=== PATIENT | female | born 1990 | race American Indian/Alaskan Native ===

== ENCOUNTER 2018-08-09 17:13 | Inpatient (IN) | payer MEDICARE ==
[2018-08-09 17:31] VITALS: O2SAT 98
[2018-08-09] MEDS ORDERED: DiphenhydrAMINE 50 mg/ml Inj IM PRN (18:32)
[2018-08-09] MEDS ORDERED: Magnesium Hydroxide Susp 30 ml UD PO PRN (18:32)
[2018-08-09] MEDS ORDERED: Alum-Mag Hydrox-Simethicone Susp (30 mL) PO PRN (18:32)
--- NOTE | 2018-08-09 18:34 | CP.PCM.CON ---
History of Present Illness - History of Present Illness History of Present Illness: 27 y/o female with PMH bipolar depression since childhood transferred to out inpatient psychiatric unit from [facility] for treatment . Medicine consulted . History obtained from patient . She states that has been off psychiatric meds for almost 2 years due to side effect profile. Recently she was in custody and was released just 2 days ago , when she returned home and decided to start wellbutryn and Abilify . She decided to call the police because she was feeling very anxious with racing thoughts , feeling depressed and suicidal , asking for help. Physically patient feeling well, denies any CP, SOB, palpittaions, PND, orthopnea, urinary sx , changes in bowel movements, weight loss or gain, fever, chills, nausea or vomiting. Allergies ; NKDA PMH Bipolar depression since childhood Medications;Abilify, Wellbutryn Surgery ; None Family history ; mother has paranoia Social history ; single, lives with mother and 2 brothers , smokes 3 cigg /day, has history of ETOH abuse , multidrug abuse , marijuana, Maribel, Crack, PCP does not work PMD ; None code sttaus : Full Surrogate decision maker : Mother ( number in chart) Review of Systems - Review of Systems All systems: reviewed and no additional remarkable complaints except Past Patient History - Infectious Disease Hx of Infectious Diseases: None - Past Social History Smoking Status: Light Smoker < 10 Cigarettes Daily Chewing Tobacco Use: No Cigar Use: No Alcohol: < 2 Drinks/Day Drugs: Cannabis, Cocaine, Inhalants Home Situation {Lives}: With Family Meds Allergies/Adverse Reactions: Allergies Allergy/AdvReac Type Severity Reaction Status Date / Time No Known Allergies Allergy Verified 08/09/18 17:14 Physical Exam - Constitutional Appears: Non-toxic, No Acute Distress - Head Exam Head Exam: ATRAUMATIC, NORMAL INSPECTION, NORMOCEPHALIC - Eye Exam Eye Exam: EOMI, Normal appearance, PERRL Pupil Exam: NORMAL ACCOMODATION - ENT Exam ENT Exam: Mucous Membranes Moist, Normal Exam - Neck Exam Neck exam: Positive for: Full Rom, Normal Inspection - Respiratory Exam Respiratory Exam: Clear to Auscultation Bilateral, NORMAL BREATHING PATTERN. absent: Rales, Rhonchi, Wheezes - Cardiovascular Exam Cardiovascular Exam: REGULAR RHYTHM, RRR, +S1, +S2. absent: JVD - GI/Abdominal Exam GI & Abdominal Exam: Normal Bowel Sounds, Soft. absent: Distended, Guarding, Rebound, Tenderness - Rectal Exam Rectal Exam: Deferred - Extremities Exam Extremities exam: Positive for: normal capillary refill, normal inspection, pedal pulses present. Negative for: calf tenderness, pedal edema - Back Exam Back exam: NORMAL INSPECTION - Neurological Exam Neurological exam: Alert, CN II-XII Intact, Oriented x3, Reflexes Normal - Psychiatric Exam Psychiatric exam: Normal Affect, Normal Mood - Skin Skin Exam: Dry, Intact, Normal Color, Warm Results - Vital Signs Recent Vital Signs: Last Vital Signs Temp 99.0 F 08/09/18 17:14 Pulse 96 H 08/09/18 17:14 Resp 16 08/09/18 17:14 BP 136/77 08/09/18 17:14 Pulse Ox 98 08/09/18 17:14 Assessment & Plan - Assessment and Plan (Free Text) Assessment: 27 y/o female with PMH bipolar depression since childhood transferred to out inpatient psychiatric unit from [facility] for treatment . Medicine consulted . History obtained from patient . She states that has been off psychiatric meds for almost 2 years due to side effect profile. Recently she was in custody and was released just 2 days ago , when she returned home and decided to start wellbutryn and Abilify . She decided to call the police because she was feeling very anxious with racing thoughts , feeling depressed and suicidal , asking for help. Physically patient feeling well, denies any CP, SOB, palpittaions, PND, orthopnea, urinary sx , changes in bowel movements, weight loss or gain, fever, chills, nausea or vomiting. 1. Bipolar depression check CBC, TSH, BMP , RPR Continue management as per psych Monitor BP for now
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
[2018-08-10 06:37] LABS: T4 10.5 ug/dl (5.5-11.0)
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
[2018-08-10] MEDS: Divalproex 250 mg DR(BID formulation) PO SCH (16:46)
[2018-08-10] MEDS ORDERED: Divalproex 500 mg DR(BID formulation) PO SCH (22:00)
[2018-08-11 06:51] LABS: HDL CHOLESTEROL 32 MG/DL (30-70)
[2018-08-11 07:03] LABS: LDL CHOLESTEROL 46 mg/dL (0-129)
[2018-08-11] MEDS: Divalproex 250 mg DR(BID formulation) PO SCH (09:33)
[2018-08-11] MEDS ORDERED: Risperidone M TAB 2 MG PO ONE (13:30)
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
[2018-08-11] MEDS ORDERED: DiphenhydrAMINE 50 mg/ml Inj IM PRN (15:40)
[2018-08-11] MEDS ORDERED: Divalproex 500 mg ER (ONCE DAILY formulation) PO SCH (22:00)
[2018-08-12] MEDS: Divalproex 500 mg ER (ONCE DAILY formulation) PO SCH ×2 (00:59→21:01)
[2018-08-12] MEDS ORDERED: Risperidone M TAB 2 MG PO SCH (09:00)
--- NOTE | 2018-08-12 15:34 | PCM.PYCHPN ---
Psychiatric Progress Note - Psychiatric Progress Note Patient seen today, length of contact: pt evaluated discussed with team chart reviewed Patient Chief Complaint: I know I am but the baby is on the side Problems Identified/Issues Discussed: pt evaluated, floridly psychotic, delusional thought process, pt believes she is , she reports having non command auditory hallucinations, commenting on her daily actions, reported they are the voices of people she numbered and knows through the internet, pt observed dysphoric internally preoccupied talking to self and responding to internal stimuli, affect extremely labile shifting between laughing inappropriately and having crying spells pt denied command hallucinations, denied any current suicidal or homicidal ideation DSM 5 Symptoms Update: post traumatic stress disorder bipolar disorder mixed with psychotic features polysubstance use Medication Change: Yes (increase haldol) Medical Record Reviewed: Yes Mental Status Examination - Cognitive Function Orientation: Person, Place, Situation, Time Attention: Poor Concentration: Poor Association: Loose Fund of Knowledge: Poor Decription of patient's judgement and insights: poor insight and judgment - Mood Mood: Depressed, Anxious - Affect Affect: Constricted - Speech Speech: Pressured - Formal Thought Process Formal Thought Process: Delusions, Loosening of associations, Circumstantial Psychotic Thoughts and Behaviors: pt delusional , with disorganized thought process - Suicidal Ideation Suicidal Ideation: No - Homicidal Ideation Homicidal Ideation: No Goal/Treatment Plan - Goal/Treatment Plan Need for Continued Stay: Severe depression anxiety, Discharge may exacerbated symptoms Progress Toward Problem(s) and Goals/Treatment Plan: haldol 5mg bid and 10mg qhs cogentin 1mg bid and 1mg qhs depakote 1000mg qhs motivational, group and supportive therapy Estimated Date of D/C: 08/18/18
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
[2018-08-13] MEDS: Divalproex 500 mg ER (ONCE DAILY formulation) PO SCH (21:12)
--- NOTE | 2018-08-14 13:14 | PCM.PYCHPN ---
Psychiatric Progress Note - Psychiatric Progress Note Patient seen today, length of contact: pt evaluated discussed with team chart reviewed Patient Chief Complaint: I am having good time Problems Identified/Issues Discussed: pt evaluated continues to have disorganized thought process with loose association, delusions of persecution, experiencing non command auditory hallucinations, pt also presenting with pressured speech, not goal directed, labile affect, episodes of crying spells alternating with inappropriate laughter , sexually preoccupied, needs frequent redirection, limited insight into illness denied command hallucinations, denied any current suicidal or homicidal ideation DSM 5 Symptoms Update: schizoaffective disorder bipolar type post traumatic disorder cannabis abuse stimulant abuse Medication Change: No Medical Record Reviewed: Yes Mental Status Examination - Cognitive Function Orientation: Person, Place, Situation, Time Attention: Poor Concentration: Poor Association: Loose Fund of Knowledge: Poor Decription of patient's judgement and insights: poor insight and judgment - Mood Mood: Depressed, Anxious - Affect Affect: Constricted - Speech Speech: Pressured - Formal Thought Process Formal Thought Process: Delusions, Loosening of associations, Circumstantial Psychotic Thoughts and Behaviors: pt delusional , with disorganized thought process - Suicidal Ideation Suicidal Ideation: No - Homicidal Ideation Homicidal Ideation: No Goal/Treatment Plan - Goal/Treatment Plan Need for Continued Stay: Severe depression anxiety, Discharge may exacerbated symptoms Progress Toward Problem(s) and Goals/Treatment Plan: haldol 5mg bid and 10mg qhs cogentin 1mg bid and 1mg qhs depakote 1500mg qhs , follow up on depakote level motivational, group and supportive therapy Estimated Date of D/C: 08/18/18
[2018-08-14] MEDS: Divalproex 500 mg ER (ONCE DAILY formulation) PO SCH (22:54)
--- NOTE | 2018-08-15 12:27 | ED PDOC ---
Psych Transfer Clearance - Clearance Statement Clearance Statement: Reviewed vital signs, lab results and transfer papers. Patient clinically stable for psychiatric admission.
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
[2018-08-15] MEDS: Divalproex 500 mg ER (ONCE DAILY formulation) PO SCH (21:12)
--- NOTE | 2018-08-16 10:06 | PCM.PYCHPN ---
Psychiatric Progress Note - Psychiatric Progress Note Patient seen today, length of contact: Pt evaluated, case discussed w/ team, chart reviewed Patient Chief Complaint: "I can read your mind." Problems Identified/Issues Discussed: Patient continues to be psychotic, disorganized w/ bizarre affect. +AH + Beliefs that she can read minds. She told the resume writer, "You were just thinking red and blue." She denies adverse effects to medications. Diagnostic Results: VPA 68.2 on 08/15/18 Medication Change: No Medical Record Reviewed: Yes Consults ordered or reviewed: Medicine consult Mental Status Examination - Cognitive Function Orientation: Person, Place, Situation, Time Attention: Poor Concentration: Poor Association: Loose Fund of Knowledge: Poor Decription of patient's judgement and insights: Poor I/J - Mood Mood: Depressed, Anxious - Affect Affect: Constricted - Speech Speech: Pressured - Formal Thought Process Formal Thought Process: Hallucinations, Delusions, Loosening of associations, Circumstantial Psychotic Thoughts and Behaviors: +AH; +Delusions of mind reading - Suicidal Ideation Suicidal Ideation: No - Homicidal Ideation Homicidal Ideation: No Goal/Treatment Plan - Goal/Treatment Plan Need for Continued Stay: Remain at risks for inpatient hospitalization, Severe depression anxiety, Discharge may exacerbated symptoms, Severe functional impairment Progress Toward Problem(s) and Goals/Treatment Plan: Schizoaffective Disorder; Stimulant and Cannabis Use Disorders -Continue Depakote, VPA 68.2 on 08/15/18 -Continue Haldol, Cogentin and Trazodone; no adverse effects to medications reported -Individual and group therapy -Psychoeducation -Medicine consult -Disposition planning Estimated Date of D/C: 08/22/18
[2018-08-16] MEDS: Divalproex 500 mg ER (ONCE DAILY formulation) PO SCH (21:28)
--- NOTE | 2018-08-17 08:29 | PCM.PYCHPN ---
Psychiatric Progress Note - Psychiatric Progress Note Patient seen today, length of contact: Pt evaluated, case discussed w/ team, chart reviewed Patient Chief Complaint: "I can read your mind." Problems Identified/Issues Discussed: Patient continues to be psychotic, disorganized w/ bizarre affect and psychomotor retardation. +AH and +Beliefs that she can read minds. She denies adverse effects to medications. Diagnostic Results: VPA 68.2 on 08/15/18 Medication Change: No Medical Record Reviewed: Yes Consults ordered or reviewed: Medicine consult Mental Status Examination - Cognitive Function Orientation: Person, Place, Situation, Time Attention: Poor Concentration: Poor Association: Loose Fund of Knowledge: Poor Decription of patient's judgement and insights: Poor I/J - Mood Mood: Depressed, Anxious - Affect Affect: Constricted - Speech Speech: Pressured - Formal Thought Process Formal Thought Process: Hallucinations, Delusions, Loosening of associations, Circumstantial Psychotic Thoughts and Behaviors: +AH; +Delusions of mind reading - Suicidal Ideation Suicidal Ideation: No - Homicidal Ideation Homicidal Ideation: No Goal/Treatment Plan - Goal/Treatment Plan Need for Continued Stay: Remain at risks for inpatient hospitalization, Severe depression anxiety, Discharge may exacerbated symptoms, Severe functional impairment Progress Toward Problem(s) and Goals/Treatment Plan: Schizoaffective Disorder; Stimulant and Cannabis Use Disorders -Continue Depakote, VPA 68.2 on 08/15/18 -Continue Haldol, Cogentin and Trazodone; no adverse effects to medications reported -Individual and group therapy -Psychoeducation -Medicine consult -Disposition planning Estimated Date of D/C: 08/22/18
[2018-08-17] MEDS: Divalproex 500 mg ER (ONCE DAILY formulation) PO SCH (21:13)
--- NOTE | 2018-08-18 14:50 | PCM.PYCHPN ---
Psychiatric Progress Note - Psychiatric Progress Note Patient seen today, length of contact: Pt evaluated, case discussed w/ team, chart reviewed Patient Chief Complaint: I am ready to start school Problems Identified/Issues Discussed: pt evaluated ,less labile and less irritable, pt however continues to present with disorganized thought process, with tangential speech and loose association, limited insight into illness, continues to be sexually preoccupied and unable to attend to her personal hygiene discussed with pt the referral to [facility] and starting partial program on discharge , also discussed starting haldol decanoate to ensure compliance denied command hallucinations denied any current thoughts of self harm DSM 5 Symptoms Update: schizoaffective disorder bipolar type polysubstance use disorder Medication Change: No Medical Record Reviewed: Yes Mental Status Examination - Cognitive Function Orientation: Person, Place, Situation, Time Memory: Confabulations Attention: WNL Concentration: Poor Association: Loose Fund of Knowledge: WNL Decription of patient's judgement and insights: partial insight , poor judgment - Mood Mood: Depressed, Anxious - Affect Affect: Constricted - Speech Speech: Pressured - Formal Thought Process Formal Thought Process: Hallucinations, Delusions, Loosening of associations, Circumstantial Psychotic Thoughts and Behaviors: pt continues to have tangential thought process, - Suicidal Ideation Suicidal Ideation: No - Homicidal Ideation Homicidal Ideation: No Goal/Treatment Plan - Goal/Treatment Plan Need for Continued Stay: Remain at risks for inpatient hospitalization, Severe depression anxiety, Discharge may exacerbated symptoms, Severe functional impairment Progress Toward Problem(s) and Goals/Treatment Plan: haldol 5mg bid and 15mg qhs, will start haldol decanoate cogentin 1mg bid and 1mg qhs depakote 1500mg qhs , depakote level 64, motivational, group and supportive therapy Estimated Date of D/C: 08/22/18
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
[2018-08-18] MEDS: Divalproex 500 mg ER (ONCE DAILY formulation) PO SCH (21:18)
[2018-08-18] MEDS: Miconazole 2% Vaginal 7 CREAM VAG SCH (21:35)
--- NOTE | 2018-08-19 13:42 | PCM.PYCHPN ---
Psychiatric Progress Note - Psychiatric Progress Note Patient seen today, length of contact: Pt evaluated, case discussed w/ team, chart reviewed Patient Chief Complaint: I think I am sick Problems Identified/Issues Discussed: pt evaluated ,seen on the unit interacting with other patients, her affect is less labile reported mood is better, speech is less disorganized and less pressured, continues to have delusional thought process, reporting she can read others thoughts and indicating that others can read her mind, pt also has somatic preoccupation with multiple somatic complaints , discussed with pt starting haldol decanoate to ensure compliance, after follow up on EKG pt reported clearing off of the auditory hallucinations denied command hallucinations denied any current thoughts of self harm DSM 5 Symptoms Update: schizoaffective disorder bipolar polysubstance use disorder PTSD Medication Change: No Medical Record Reviewed: Yes Mental Status Examination - Cognitive Function Orientation: Person, Place, Situation, Time Memory: Confabulations Attention: WNL Concentration: Poor Association: Loose Fund of Knowledge: WNL Decription of patient's judgement and insights: partial insight , poor judgment - Mood Mood: Depressed, Anxious - Affect Affect: Constricted - Speech Speech: Pressured - Formal Thought Process Formal Thought Process: Hallucinations, Delusions, Loosening of associations, Circumstantial Psychotic Thoughts and Behaviors: pt continues to have tangential thought process, - Suicidal Ideation Suicidal Ideation: No - Homicidal Ideation Homicidal Ideation: No Goal/Treatment Plan - Goal/Treatment Plan Need for Continued Stay: Remain at risks for inpatient hospitalization, Severe depression anxiety, Discharge may exacerbated symptoms, Severe functional impairment Progress Toward Problem(s) and Goals/Treatment Plan: haldol 5mg bid and 15mg qhs, will start haldol decanoate after EKG follow up cogentin 1mg bid and 1mg qhs depakote 1500mg qhs , depakote level 64, motivational, group and supportive therapy Estimated Date of D/C: 08/22/18
[2018-08-19] MEDS: Divalproex 500 mg ER (ONCE DAILY formulation) PO SCH (21:25)
--- NOTE | 2018-08-20 10:34 | CARD ---
APPROVED REPORT Date of service: 08/19/2018 <Conclusion> Normal sinus rhythm Normal ECG
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
[2018-08-20] MEDS: Divalproex 500 mg ER (ONCE DAILY formulation) PO SCH (21:36)
[2018-08-21] MEDS: Divalproex 500 mg ER (ONCE DAILY formulation) PO SCH (21:07)
[2018-08-21] MEDS: Miconazole 2% Vaginal 7 CREAM VAG SCH (21:08)
--- NOTE | 2018-08-22 17:38 | PCM.PYCHPN ---
Psychiatric Progress Note - Psychiatric Progress Note Patient seen today, length of contact: Pt evaluated, case discussed w/ team, chart reviewed Patient Chief Complaint: pt seen sitting on edge of bed, reports feeling sedated at times., staff report pt reports has falling on knees was seen by hospitalist per team. pt received trazodone last evening. pt is having haldol dose decreased today related to possible side effects. Problems Identified/Issues Discussed: alteration in cognition alteration in coping unwitnessed fall Medical Problems: pt seen by hospitalist Diagnostic Results: per psychiatry per medicine per nursing per social work per recreational therapy DSM 5 Symptoms Update: some improvement psychosis Medication Change: Yes (decrease today's haldol dose to 1mg am, 5p and hs) Medical Record Reviewed: Yes Consults ordered or reviewed: pt seen by hospitalist Mental Status Examination - Cognitive Function Orientation: Person, Place, Situation, Time Memory: Confabulations Attention: WNL Concentration: Poor Association: Loose Fund of Knowledge: WNL Decription of patient's judgement and insights: impaired - Mood Mood: Depressed - Affect Affect: Constricted - Speech Speech: Pressured - Formal Thought Process Formal Thought Process: Hallucinations, Delusions, Circumstantial - Suicidal Ideation Suicidal Ideation: No - Homicidal Ideation Homicidal Ideation: No Goal/Treatment Plan - Goal/Treatment Plan Need for Continued Stay: Remain at risks for inpatient hospitalization, Severe depression anxiety, Discharge may exacerbated symptoms, Severe functional impairment Progress Toward Problem(s) and Goals/Treatment Plan: inpt milieu decrease today's haldol to 1mg po am, 1mg po 5pm and 1mg po hs place pt one to one for safety team can reassess status am discharge planning in progress vital signs and clinical observation per protocol and per status pt seen by hospitalit Estimated Date of D/C: 08/29/18 - Smoking Cessation Smoking Cessation Initiated: No Reason for not providing: defers
[2018-08-22] MEDS: Divalproex 500 mg ER (ONCE DAILY formulation) PO SCH (21:17)
[2018-08-22] MEDS: Miconazole 2% Vaginal 7 CREAM VAG SCH (21:18)
--- NOTE | 2018-08-23 09:50 | PCM.PYCHPN ---
Psychiatric Progress Note - Psychiatric Progress Note Patient seen today, length of contact: Pt evaluated, case discussed w/ team, chart reviewed Patient Chief Complaint: pt has remained internally preoccupied and still withdrawn and hallucinating and started on haldol dec recentky. Medication Change: Yes (decrease today's haldol dose to 1mg am, 5p and hs) Medical Record Reviewed: Yes Mental Status Examination - Cognitive Function Orientation: Person, Place, Situation, Time Memory: Confabulations Attention: WNL Concentration: Poor Association: Loose Fund of Knowledge: WNL - Mood Mood: Depressed - Affect Affect: Constricted - Speech Speech: Pressured - Formal Thought Process Formal Thought Process: Hallucinations, Delusions, Circumstantial - Suicidal Ideation Suicidal Ideation: No - Homicidal Ideation Homicidal Ideation: No Goal/Treatment Plan - Goal/Treatment Plan Need for Continued Stay: Remain at risks for inpatient hospitalization, Severe depression anxiety, Discharge may exacerbated symptoms, Severe functional impairment Progress Toward Problem(s) and Goals/Treatment Plan: continue the curent meds and 1:1 observation for safety. Estimated Date of D/C: 08/29/18
[2018-08-23] MEDS: Divalproex 500 mg ER (ONCE DAILY formulation) PO SCH (21:19)
[2018-08-23] MEDS: Miconazole 2% Vaginal 7 CREAM VAG SCH (21:25)
[2018-08-24] MEDS: Miconazole 2% Vaginal 7 CREAM VAG SCH ×2 (21:24→21:25)
[2018-08-24] MEDS: Divalproex 500 mg ER (ONCE DAILY formulation) PO SCH (21:24)
[2018-08-25 13:15] LABS: BASO # 0.1 K/uL (0.0-0.2); BASO % 1.3 % (0.0-2.0); EOS # 0.3 K/uL (0.0-0.7); EOS % 4.7 % (0.0-4.0); HEMOGLOBIN 12.1 g/dL (12.0-16.0); LYMPH # 2.4 K/uL (1.0-4.3); MEAN CELL VOLUME 81.9 fl (81.0-99.0); MEAN CORPUSCULAR HEMOGLOBIN 27.1 pg (27.0-31.0); MEAN CORPUSCULAR HGB CONC 33.1 g/dL (33.0-37.0); MEAN PLATELET VOLUME 8.2 fl (7.2-11.7); MONO # 0.7 K/uL (0.0-0.8); MONO % 8.9 % (0.0-10.0); NEUT # 3.8 K/uL (1.8-7.0); NEUT % 52.1 % (50.0-75.0); NRBC % 0.1 % (0.0-0.0); RBC 4.45 Mil/uL (3.80-5.20); RED CELL DISTRIBUTION WIDTH 14.6 % (11.5-14.5); WHITE BLOOD COUNT 7.3 K/uL (4.8-10.8)
--- NOTE | 2018-08-25 13:38 | CP.PCM.PN ---
Subjective - Date & Time of Evaluation Date of Evaluation: 08/25/18 Time of Evaluation: 13:00 - Subjective Subjective: Patient seen as follow up because of lethargy and elevated CPK at 616. Reported to have been receiving a total of 25mg of Haldol a day now cut down to 5mg PO BID. Objective - Vital Signs/Intake and Output Vital Signs (last 24 hours): Temp Pulse Resp BP Pulse Ox 97.3 F L 70 18 105/62 98 08/25/18 09:00 08/25/18 09:00 08/25/18 09:00 08/25/18 09:00 08/09/18 17:14 - Medications Medications: Current Medications Benztropine Mesylate (Cogentin) 1 mg PO [facility] Last Admin: 08/24/18 21:23 Dose: 1 mg Diphenhydramine HCl (Benadryl) 50 mg IM Q4 PRN PRN Reason: Extrapyramidal S/S Unable PO Last Admin: 08/24/18 18:47 Dose: 50 mg Diphenhydramine HCl (Benadryl) 50 mg PO Q4 PRN PRN Reason: Extrapyramidal Symptoms Divalproex Sodium (Depakote Er(Once Daily)) 1,500 mg PO [facility] Last Admin: 08/24/18 21:24 Dose: 1,500 mg Haloperidol (Haldol) 5 mg PO BID [facility] Last Admin: 08/22/18 09:54 Dose: 5 mg Haloperidol (Haldol) 15 mg PO [facility] Last Admin: 08/24/18 21:24 Dose: 15 mg Hydroxyzine Pamoate (Vistaril) 50 mg PO Q8 PRN PRN Reason: Anxiety Last Admin: 08/17/18 13:34 Dose: 50 mg Trazodone HCl (Desyrel) 100 mg PO [facility] Last Admin: 08/21/18 21:08 Dose: 100 mg Trazodone HCl (Desyrel) 100 mg PO [facility] Last Admin: 08/24/18 21:24 Dose: 100 mg - Labs Labs: 08/25/18 13:12 - Constitutional Appears: Other (lethargic but responsive to verbal inquiry) - Head Exam Head Exam: ATRAUMATIC - ENT Exam ENT Exam: Mucous Membranes Moist - Respiratory Exam Respiratory Exam: absent: Rales, Rhonchi, Wheezes, Respiratory Distress - Cardiovascular Exam Cardiovascular Exam: REGULAR RHYTHM, +S1, +S2 - Psychiatric Exam Psychiatric exam: Flat Affect - Skin Skin Exam: Dry, Intact Assessment and Plan (1) Rhabdomyolysis Status: Acute - Assessment and Plan (Free Text) Plan: IV hydration with NSS 250cc/hr urinalysis repeat CPK, BMP in am hold Haldol
--- NOTE | 2018-08-25 14:29 | PCM.PYCHPN ---
Psychiatric Progress Note - Psychiatric Progress Note Patient seen today, length of contact: Pt evaluated, case discussed w/ team, chart reviewed Patient Chief Complaint: I am tired Problems Identified/Issues Discussed: pt evaluated , presenting with altered mental status , on reviewing the chart pt since 08/22 noted to be drowsy ,sedated, with underproductive speech and minimal eye contact, reporting weakness of her body and her knees giving up , resulting in multiple falls, internal medicine was consulted and haldol was held, pt continued to present with increased drossiness and altered mental status, almost mute , episodes of unsteadiness of gait resulting in falls, poor eye contact closing her eyes, on examination,no stiffness of extremities no shuffling gait noted, no reported changes in vital signs temp/ 97.2, bp105/65 pt appears to be catatonic with waxy flexibility , cpk ordered stat noted to be 616 , CBC with diff ordered WBC noted to be 7.2 will consult with neurology and internal medicine to rule out neuroleptic malignant syndrome, possible need for IV fluids pt continues to report non command auditory hallucinations, presenting with disorganized thought process and possible catatonia DSM 5 Symptoms Update: schizoaffective disorder 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 Medication Change: Yes (HOLD HALDOL ) Medical Record Reviewed: Yes Mental Status Examination - Cognitive Function Orientation: Person, Place, Situation, Time Memory: Confabulations Attention: Poor Concentration: Poor Association: Loose Fund of Knowledge: Poor Decription of patient's judgement and insights: POOR INSIGHT AND JUDGMENT - Mood Mood: Depressed - Affect Affect: Constricted - Speech Additional comments: underproductive pt almost mute - Formal Thought Process Formal Thought Process: Hallucinations, Delusions - Suicidal Ideation Suicidal Ideation: No - Homicidal Ideation Homicidal Ideation: No Goal/Treatment Plan - Goal/Treatment Plan Need for Continued Stay: Remain at risks for inpatient hospitalization, Severe depression anxiety, Discharge may exacerbated symptoms, Severe functional impairment Progress Toward Problem(s) and Goals/Treatment Plan: pt presenting with altered mental status and cartatonia stat CPK ordered 616 CBC with diff ordered within normal, ordered comprehensive metabolic panel for tomorrow AM neurology and internal medicine consults requested for possible need for IV fluids will also hold depakote . ativan as needed for catatonic features Estimated Date of D/C: 09/05/18
[2018-08-25] MEDS: Sodium Chloride 0.9% 1,000 ML IV SCH ×2 (16:50→18:55)
[2018-08-25 17:09] LABS: SQUAMOUS EPITHIAL 7 /hpf (0-5); URINE BACTERIA RARE (<OCC); URINE BILIRUBIN NEGATIVE (NEGATIVE); URINE BLOOD NEGATIVE (NEGATIVE); URINE CLARITY SLIGHTY-CLOUDY (Clear); URINE COLOR YELLOW (YELLOW); URINE GLUCOSE (UA) NEG (Normal); URINE LEUKOCYTE ESTERASE SMALL Leu/uL (Negative); URINE PROTEIN NEGATIVE (NEGATIVE); URINE UROBILINOGEN 0.2-1.0 mg/dL (0.2-1.0)
[2018-08-25 17:13] LABS: BARBITURATES, UR NEGATIVE (NEGATIVE); BENZODIAZEPINES, UR NEGATIVE (NEGATIVE); OPIATES, UR NEGATIVE (NEGATIVE); PHENCYCLIDINE, UR NEGATIVE (NEGATIVE)
[2018-08-25] MEDS ORDERED: Sodium Chloride 0.9% 1,000 ML IV SCH (20:15)
[2018-08-26 07:33] LABS: BLOOD UREA NITROGEN 8 mg/dl (7-17); CALCIUM 7.7 mg/dL (8.4-10.2); GFR NON-AFRICAN AMERICAN > 60
[2018-08-26 08:24] LABS: ALB/GLOB RATIO 1.1 (1.0-2.1); ALBUMIN 3.2 g/dL (3.5-5.0); ALT/SGPT 13 U/L (9-52); AST/SGOT 106 U/L (14-36)
--- NOTE | 2018-08-26 12:52 | PCM.PYCHPN ---
Psychiatric Progress Note - Psychiatric Progress Note Patient seen today, length of contact: Pt evaluated, case discussed w/ team, chart reviewed Patient Chief Complaint: I ate green peas Problems Identified/Issues Discussed: pt evaluated , continues to be lethargic, drowsy sedated despite of holding all psychotropics , speech very underproductive, irrelevant , thought process , not goal directed, reported feeling weak, unable to ambulate , continues to stay in bed , , oriented to person only , patient appears delirious , neurology consult is requested , internal medicine started IV fluids CPK repeated noted to be 64 vital signs noted 109/63 temp 97.6 noted that AST 106, WILL DO AMMONIA LEVEL TO rule out hepatic encephalopahty will consult with internal medicine in reference to continuing with IV fluids DSM 5 Symptoms Update: schizoaffective disorder rule out hypoactive delirium rule out hepatic encephalopathy rule out NMS Medication Change: Yes (HOLD HALDOL ) Medical Record Reviewed: Yes Mental Status Examination - Cognitive Function Orientation: Person, Place, Situation, Time Memory: Confabulations Attention: Poor Concentration: Poor Association: Loose Fund of Knowledge: Poor Decription of patient's judgement and insights: POOR INSIGHT AND JUDGMENT - Mood Mood: Depressed - Affect Affect: Constricted - Speech Speech: Pressured - Formal Thought Process Formal Thought Process: Hallucinations, Delusions - Suicidal Ideation Suicidal Ideation: No - Homicidal Ideation Homicidal Ideation: No Goal/Treatment Plan - Goal/Treatment Plan Need for Continued Stay: Remain at risks for inpatient hospitalization, Severe depression anxiety, Discharge may exacerbated symptoms, Severe functional impairment Progress Toward Problem(s) and Goals/Treatment Plan: pt presenting with altered mental status/ HYPOACTIVE DELIRIUM awaiting neurology consult/ Dr Francis notified CPK repeat is 624 will consult with internal medicine in reference to continuing IV fluids/ Dr Bazan notified AST noted 106, will follow up on ammonia level to rule out hepatic encephalopathy continue to hold all psychotropics, follow up on vitals follow up on labs as needed Estimated Date of D/C: 09/05/18
--- NOTE | 2018-08-27 13:26 | PCM.PYCHPN ---
Psychiatric Progress Note - Psychiatric Progress Note Patient seen today, length of contact: Pt evaluated, case discussed w/ team, chart reviewed Patient Chief Complaint: I am tired and I do not want to do blood work any more Problems Identified/Issues Discussed: pt evaluated , more alert, speech more productive , less sedated, today oriented to person and place , partially to time, responding and answering the questions of the undersigned, stated feeling tired, low energy, reported that she currently is not hearing voices any more , thought process continues to be tangential and circumstantial, educated patient importance of compliance with blood work to be able to start psychotropics as needed pt denied any current suicidal or homicidal ideation DSM 5 Symptoms Update: schizoaffective disorder polysubstance use rule out, s/p delirium Medication Change: No Medical Record Reviewed: Yes Mental Status Examination - Cognitive Function Orientation: Person, Place, Situation, Time Memory: Confabulations Attention: WNL Concentration: Poor Association: Loose Fund of Knowledge: Poor Decription of patient's judgement and insights: POOR INSIGHT AND JUDGMENT - Mood Mood: Depressed - Affect Affect: Constricted - Speech Speech: Pressured - Formal Thought Process Formal Thought Process: Delusions, Circumstantial - Suicidal Ideation Suicidal Ideation: No - Homicidal Ideation Homicidal Ideation: No Goal/Treatment Plan - Goal/Treatment Plan Need for Continued Stay: Remain at risks for inpatient hospitalization, Severe depression anxiety, Discharge may exacerbated symptoms, Severe functional impairment Progress Toward Problem(s) and Goals/Treatment Plan: continue 1: 1 for safety and risk of falls continue to hold psychotropics except ativan as needed repeat cpk, basal metabolic pannel tomorrow AM awaiting documentation of internal medicine consult awaiting neurology consult Estimated Date of D/C: 09/05/18
[2018-08-28 09:33] LABS: BASO # 0.1 K/uL (0.0-0.2); BASO % 0.9 % (0.0-2.0); EOS # 0.3 K/uL (0.0-0.7); EOS % 4.4 % (0.0-4.0); HEMOGLOBIN 12.3 g/dL (12.0-16.0); LYMPH # 2.3 K/uL (1.0-4.3); LYMPH % 32.4 % (20.0-40.0); MEAN CELL VOLUME 81.5 fl (81.0-99.0); MEAN CORPUSCULAR HEMOGLOBIN 27.2 pg (27.0-31.0); MEAN CORPUSCULAR HGB CONC 33.4 g/dL (33.0-37.0); MEAN PLATELET VOLUME 8.6 fl (7.2-11.7); MONO # 0.3 K/uL (0.0-0.8); MONO % 4.1 % (0.0-10.0); NEUT # 4.1 K/uL (1.8-7.0); NEUT % 58.2 % (50.0-75.0); NRBC % 0.8 % (0.0-0.0); RBC 4.53 Mil/uL (3.80-5.20); RED CELL DISTRIBUTION WIDTH 14.8 % (11.5-14.5)
[2018-08-28 09:48] LABS: ALB/GLOB RATIO 1.1 (1.0-2.1); ALT/SGPT 28 U/L (9-52); AST/SGOT 25 U/L (14-36); BLOOD UREA NITROGEN 14 mg/dl (7-17); GFR NON-AFRICAN AMERICAN > 60; HDL CHOLESTEROL 36 MG/DL (30-70)
[2018-08-28 09:55] LABS: LDL CHOLESTEROL 66 mg/dL (0-129)
--- NOTE | 2018-08-28 12:21 | PCM.PYCHPN ---
Psychiatric Progress Note - Psychiatric Progress Note Patient seen today, length of contact: Pt evaluated, case discussed w/ team, chart reviewed Patient Chief Complaint: I want to go home and start school Problems Identified/Issues Discussed: pt evaluated , seen in day room, interacting with other peers, more alert, speech more productive , pt oriented to person and place, with more clear thought process, less disorganized and speech more goal directed, requesting to be discharged, discussed with pt the need to be restarted on mood stabilizer and to be monitored for the side effects possibility while in the hospital, discussed starting seroquel and increasing gradually, pt denied any current perceptual disturbances, continues to have labile affect denied any current suicidal or homicidal ideation DSM 5 Symptoms Update: schizoaffective disorder bipolar polysubstance use Medication Change: Yes (start seroquel) Medical Record Reviewed: Yes Mental Status Examination - Cognitive Function Orientation: Person, Place, Situation, Time Memory: Confabulations Attention: WNL Concentration: Poor Association: WNL Fund of Knowledge: Poor Decription of patient's judgement and insights: POOR INSIGHT AND JUDGMENT - Mood Mood: Neutral - Affect Affect: Constricted Additional comments: labile - Speech Speech: Pressured - Formal Thought Process Formal Thought Process: Circumstantial Psychotic Thoughts and Behaviors: pt reported clearing off of the auditory hallucinations - Suicidal Ideation Suicidal Ideation: No - Homicidal Ideation Homicidal Ideation: No Goal/Treatment Plan - Goal/Treatment Plan Need for Continued Stay: Remain at risks for inpatient hospitalization, Severe depression anxiety, Discharge may exacerbated symptoms, Severe functional impairment Progress Toward Problem(s) and Goals/Treatment Plan: discontinue 1:1 start seroquel 25mg bid and 200mg qhs, monitor pt for psychopharmacological effects and side effect profile ativan as needed repeat [id number] , basal metabolic pannel and CBC normal awaiting documentation of internal medicine consult awaiting neurology consult Estimated Date of D/C: 09/05/18
[2018-08-29] MEDS: Divalproex 500 mg DR(BID formulation) PO SCH ×2 (11:34→18:37)
--- NOTE | 2018-08-29 12:05 | PCM.PYCHPN ---
Psychiatric Progress Note - Psychiatric Progress Note Patient seen today, length of contact: Pt evaluated, case discussed w/ team, chart reviewed Patient Chief Complaint: I am all well when can I go Problems Identified/Issues Discussed: pt evaluated , presenting with labile affect, hypomanic, , limited insight into illness, reported by staff to have poor sleep with increased ebnergy all night, thought process tangential, pt reported clearing off of the auditory h allucinations, discussed gradual increase in seroquel and restarting depakote, no noted or reported side effects denied any current suicidal or homicidal ideation DSM 5 Symptoms Update: schizoaffective disorder bipolar polysubstance use Medication Change: Yes (start depakote ) Medical Record Reviewed: Yes Mental Status Examination - Cognitive Function Orientation: Person, Place, Situation, Time Memory: Confabulations Attention: WNL Concentration: Poor Association: WNL Fund of Knowledge: Poor Decription of patient's judgement and insights: POOR INSIGHT AND JUDGMENT - Mood Mood: Neutral - Affect Additional comments: labile - Speech Speech: Loud, Pressured - Formal Thought Process Formal Thought Process: Circumstantial Psychotic Thoughts and Behaviors: pt reported clearing off of the auditory hallucinations - Suicidal Ideation Suicidal Ideation: No - Homicidal Ideation Homicidal Ideation: No Goal/Treatment Plan - Goal/Treatment Plan Need for Continued Stay: Remain at risks for inpatient hospitalization, Severe depression anxiety, Discharge may exacerbated symptoms, Severe functional impairment Progress Toward Problem(s) and Goals/Treatment Plan: seroquel 25mg bid and 300mg qhs depakote 500mg bid monitor pt for psychopharmacological effects and side effect profile Estimated Date of D/C: 09/05/18
[2018-08-30] MEDS: Divalproex 500 mg DR(BID formulation) PO SCH ×2 (09:22→18:28)
--- NOTE | 2018-08-30 16:35 | PCM.PYCHPN ---
Psychiatric Progress Note - Psychiatric Progress Note Patient seen today, length of contact: Pt evaluated, case discussed w/ team, chart reviewed Patient Chief Complaint: pt seen about unit, reports feeling calmer somewhat, staff report pt adherent with medications, pt denies pain, denies change in urinary output Problems Identified/Issues Discussed: alteration in cognition alteration in coping unwitnessed fall Medical Problems: pt seen by hospitalist Diagnostic Results: per psychiatry per medicine per nursing per social work per recreational therapy DSM 5 Symptoms Update: changes in mood cognition Medication Change: No Medical Record Reviewed: Yes Consults ordered or reviewed: pt seen by hospitalist Mental Status Examination - Cognitive Function Orientation: Person, Place, Situation, Time Memory: Confabulations Attention: WNL Concentration: Poor Association: WNL Fund of Knowledge: Poor Decription of patient's judgement and insights: impaired - Mood Mood: Neutral - Affect Affect: Constricted - Speech Speech: Loud, Pressured - Formal Thought Process Formal Thought Process: Circumstantial - Suicidal Ideation Suicidal Ideation: No - Homicidal Ideation Homicidal Ideation: No Goal/Treatment Plan - Goal/Treatment Plan Need for Continued Stay: Remain at risks for inpatient hospitalization, Severe depression anxiety, Discharge may exacerbated symptoms, Severe functional imp airment Progress Toward Problem(s) and Goals/Treatment Plan: inpt milieu discharge planning in progress vital signs and clinical observation per protocol and per status pt seen by hospitalist Estimated Date of D/C: 09/05/18 - Smoking Cessation Smoking Cessation Initiated: No Reason for not providing: pt defers
[2018-08-31] MEDS: Divalproex 500 mg DR(BID formulation) PO SCH ×2 (09:28→17:44)
--- NOTE | 2018-08-31 17:30 | PCM.PYCHPN ---
Psychiatric Progress Note - Psychiatric Progress Note Patient seen today, length of contact: Pt evaluated, case discussed w/ team, chart reviewed Patient Chief Complaint: pt seen in room, reports did not have any shaking last night, sleeping better, less anxious denies paranoia denies desire to harmself or others. deneis cramping, stiffness. pt report that pt has been noted to sleeping during day requiring prompting to leave room. denies changes in urination Problems Identified/Issues Discussed: alteration in cognition alteration in coping unwitnessed fall Medical Problems: pt seen by hospitalist Diagnostic Results: per psychiatry per medicine per nursing per social work per recreational therapy DSM 5 Symptoms Update: less anxious less psychosis denying side effects medication Medication Change: No Medical Record Reviewed: Yes Consults ordered or reviewed: deferred Mental Status Examination - Cognitive Function Orientation: Person, Place, Situation, Time Memory: Confabulations Attention: WNL Concentration: WNL Association: WN Fund of Knowledge: [facility] Decription of patient's judgement and insights: impaired - Mood Mood: Neutral - Affect Affect: Constricted - Speech Speech: Appropriate, Soft - Formal Thought Process Formal Thought Process: Circumstantial - Suicidal Ideation Suicidal Ideation: No - Homicidal Ideation Homicidal Ideation: No Goal/Treatment Plan - Goal/Treatment Plan Need for Continued Stay: Remain at risks for inpatient hospitalization, Severe depression anxiety, Discharge may exacerbated symptoms, Severe functional impairment Progress Toward Problem(s) and Goals/Treatment Plan: inpt milieu discontinue seroquel bid pt reports noted to be tired and seen in room sleeping, ?history of shaking night prior discontinue trazodone 100mg po hs start prn trazodone 50mg po hs prn inosmnia repeat cmp in am discharge planning in progress Estimated Date of D/C: 09/02/18 - Smoking Cessation Smoking Cessation Initiated: No Reason for not providing: pt defers
[2018-09-01] MEDS: Divalproex 500 mg DR(BID formulation) PO SCH ×2 (09:21→17:20)
--- NOTE | 2018-09-01 14:59 | PCM.PYCHPN ---
Psychiatric Progress Note - Psychiatric Progress Note Patient seen today, length of contact: Pt evaluated, case discussed w/ team, chart reviewed Patient Chief Complaint: My mother and brother visited, I wish I could go home Problems Identified/Issues Discussed: pt evaluated , thought process is less disorganized, more goal directed, speech less pressured, continues to be hypomanic with labile affect discussed with pt increasing dose of seroquel, no reported side effects of medications, pt attending groups and compliant with medications motivational therapy provided in reference to substance use, and its effect on current mentak status discussed with pt referral to partial program on discharge pt denied any current suicidal or homicidal ideation, reported clearing off of the auditory halluciantions DSM 5 Symptoms Update: schizoaffective disorder bipolar polysubstance use disorder Medication Change: No Medical Record Reviewed: Yes Mental Status Examination - Cognitive Function Orientation: Person, Place, Situation, Time Memory: Confabulations Attention: WNL Concentration: WNL Association: WN Fund of Knowledge: WN - Mood Mood: Neutral - Affect Affect: Constricted - Speech Speech: Appropriate - Formal Thought Process Formal Thought Process: Circumstantial Psychotic Thoughts and Behaviors: pt denied perceptual disturbances - Suicidal Ideation Suicidal Ideation: No - Homicidal Ideation Homicidal Ideation: No Goal/Treatment Plan - Goal/Treatment Plan Need for Continued Stay: Remain at risks for inpatient hospitalization, Severe depression anxiety, Discharge may exacerbated symptoms, Severe functional impairment Progress Toward Problem(s) and Goals/Treatment Plan: seroquel 25mg bid and 300mg qhs depakote 500mg bid monitor pt for psychopharmacological effects and side effect profile CPK noted 59 social media developer to arrange for follow up plan Estimated Date of D/C: 09/02/18
[2018-09-02] MEDS: Divalproex 500 mg DR(BID formulation) PO SCH ×2 (08:33→17:58)
--- NOTE | 2018-09-02 13:40 | PCM.PYCHPN ---
Psychiatric Progress Note - Psychiatric Progress Note Patient seen today, length of contact: Pt evaluated, case discussed w/ team, chart reviewed Patient Chief Complaint: I want to start a day program Problems Identified/Issues Discussed: pt evaluated , observed interacting with other patients, attending groups, speech less pressured , thought process more goal directed, denied any current perceptual disturbances, no reported side effects of medications , denied suicida or homicidal ideation DSM 5 Symptoms Update: schizoaffective diisorder bipolar type polysubstance use disorder Medication Change: No Medical Record Reviewed: Yes Mental Status Examination - Cognitive Function Orientation: Person, Place, Situation, Time Memory: Confabulations Attention: WNL Concentration: WNL Association: WNL Fund of Knowledge: WNL - Mood Mood: Neutral - Affect Affect: Constricted - Speech Speech: Appropriate, Loud - Formal Thought Process Formal Thought Process: Circumstantial Psychotic Thoughts and Behaviors: pt denied perceptual disturbances - Suicidal Ideation Suicidal Ideation: No - Homicidal Ideation Homicidal Ideation: No Goal/Treatment Plan - Goal/Treatment Plan Need for Continued Stay: Remain at risks for inpatient hospitalization, Severe depression anxiety, Discharge may exacerbated symptoms, Severe functional impairment Progress Toward Problem(s) and Goals/Treatment Plan: seroquel 300mg qhs depakote 500mg bid monitor pt for psychopharmacological effects and side effect profile CPK noted 59 awaiting nursing home social worker to arrange for follow up plan and disposition Estimated Date of D/C: 09/05/18
[2018-09-03] MEDS: Divalproex 500 mg DR(BID formulation) PO SCH ×2 (08:27→17:14)
--- NOTE | 2018-09-03 15:28 | PCM.PYCHPN ---
Psychiatric Progress Note - Psychiatric Progress Note Patient seen today, length of contact: Pt evaluated, case discussed w/ team, chart reviewed Patient Chief Complaint: I am good with the medicine I am on I want to start school Problems Identified/Issues Discussed: pt evaluated ,cooperative , compliant with treatment observed interacting with other patients, attending groups, speech less pressured , thought process more goal directed, denied any current perceptual disturbances, no reported side effects of medications , denied suicidal or homicidal ideation DSM 5 Symptoms Update: schizoaffective disorder polysubstance use disorder Medication Change: No Medical Record Reviewed: Yes Mental Status Examination - Cognitive Function Orientation: Person, Place, Situation, Time Memory: Confabulations Attention: WNL Concentration: WNL Association: WNL Fund of Knowledge: WNL - Mood Mood: Neutral - Affect Affect: Constricted - Speech Speech: Appropriate, Loud - Formal Thought Process Formal Thought Process: Circumstantial Psychotic Thoughts and Behaviors: pt denied perceptual disturbances - Suicidal Ideation Suicidal Ideation: No - Homicidal Ideation Homicidal Ideation: No Goal/Treatment Plan - Goal/Treatment Plan Need for Continued Stay: Remain at risks for inpatient hospitalization, Severe depression anxiety, Discharge may exacerbated symptoms, Severe functional impairment Progress Toward Problem(s) and Goals/Treatment Plan: seroquel 300mg qhs depakote 500mg bid monitor pt for psychopharmacological effects and side effect profile awaiting health care social worker to arrange for follow up plan and disposition Estimated Date of D/C: 09/05/18
[2018-09-04] MEDS: Divalproex 500 mg DR(BID formulation) PO SCH ×2 (08:45→17:32)
[2018-09-04 09:09] VITALS: RESP 18
--- NOTE | 2018-09-04 16:52 | PCM.PYCHPN ---
Psychiatric Progress Note - Psychiatric Progress Note Patient seen today, length of contact: Pt evaluated, case discussed w/ team, chart reviewed Patient Chief Complaint: I am feeling better Problems Identified/Issues Discussed: pt evaluated ,cooperative , no reported changess in sleep or appetite compliant with treatment observed interacting with other patients, attending groups, speech less pressured , thought process more goal directed, denied any current perceptual disturbances, no reported side effects of medications , denied suicidal or homicidal ideation DSM 5 Symptoms Update: schizoaffective disorder bipolar type Medication Change: No Medical Record Reviewed: Yes Mental Status Examination - Cognitive Function Orientation: Person, Place, Situation, Time Memory: Confabulations Attention: WNL Concentration: WNL Association: WNL Fund of Knowledge: WNL - Mood Mood: Neutral - Affect Affect: Constricted - Speech Speech: Appropriate, Loud - Formal Thought Process Formal Thought Process: Circumstantial Psychotic Thoughts and Behaviors: pt denied perceptual disturbances - Suicidal Ideation Suicidal Ideation: No - Homicidal Ideation Homicidal Ideation: No Goal/Treatment Plan - Goal/Treatment Plan Need for Continued Stay: Remain at risks for inpatient hospitalization, Severe depression anxiety, Discharge may exacerbated symptoms, Severe functional impairment Progress Toward Problem(s) and Goals/Treatment Plan: seroquel 300mg qhs depakote 500mg bid monitor pt for psychopharmacological effects and side effect profile awaiting social worker to arrange for follow up plan and disposition Estimated Date of D/C: 09/05/18
[2018-09-05] MEDS: Divalproex 500 mg DR(BID formulation) PO SCH ×2 (09:06→16:33)
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
[2018-09-05 16:39] VITALS: BP 129/65; PULSE 93; TEMP 98.1
== END 2018-09-05 21:15 | disposition home or self-care (01) | DRG 885 ==
LOC: H.ER 17:13 → H.ERHOLD 17:19 → H.PSYCH 17:44
PROVIDERS: ADMIT Psychiatry & Neurology Psychiatry; ATTEND Psychiatry & Neurology Psychiatry
PROC: GZHZZZZ Group Psychotherapy (ICD-10-PCS; principal; 2018-08-11)
PROC: GZ58ZZZ Individual Psychotherapy, Cognitive-Behavioral (ICD-10-PCS; 2018-08-11)
DX: F31.64 Bipolar disorder, current episode mixed, severe, with psychotic features (principal); M62.82 Rhabdomyolysis; F43.10 Post-traumatic stress disorder, unspecified; G47.00 Insomnia, unspecified; Z83.3 Family history of diabetes mellitus; Z91.19 Patient's noncompliance with other medical treatment and regimen; Z91.410 Personal history of adult physical and sexual abuse; A59.9 Trichomoniasis, unspecified; N92.6 Irregular menstruation, unspecified; F12.159 Cannabis abuse with psychotic disorder, unspecified; F15.159 Other stimulant abuse with stimulant-induced psychotic disorder, unspecified; F17.210 Nicotine dependence, cigarettes, uncomplicated; R74.8 Abnormal levels of other serum enzymes